=== PATIENT | female | born 1950 | race Caucasian/White ===

== ENCOUNTER 2017-04-20 14:00 | Observation (INO) ==
[2017-04-20] MEDS ORDERED: Aspirin 81 MG TAB.CHEW PO ONE (14:17)
[2017-04-20] MEDS ORDERED: 0.9 % Sodium Chloride 500 ML IVC ONE (14:17)
[2017-04-20 14:51] LABS: Basophils % 0.6 %; Eosinophils % 0.6 %; Hematocrit 45.1 % (35.3-44.9); Hemoglobin 15.1 g/dL (11.5-15.4); Immature Granulocytes % 0.3 % (0-4); Lymphocytes # 2.4 K/mcL (0.6-4.6); Lymphocytes % 36.4 %; Mean Corpuscular HGB Conc 33.5 g/dL (31.6-35.5); Mean Corpuscular Hemoglobin 28.9 pg (28.0-33.3); Mean Corpuscular Volume 86.4 fL (83.0-100.0); Mean Platelet Volume 9.2 fL (9.4-12.4); Monocytes # 0.4 K/mcL (0.0-1.3); Neutrophils # 3.7 K/mcL (1.6-8.9); Platelet Count 254 K/mcL (140-400); Red Blood Count 5.22 M/mcL (3.82-4.97); Red Cell Distribution Width 12.4 % (11.5-14.5); Segmented Neutrophils % 56.1 %
[2017-04-20 15:03] LABS: BUN/Creatinine Ratio 13 (6-26); Blood Urea Nitrogen 11 mg/dL (8-23); Calcium 9.4 mg/dL (8.6-10.3); Carbon Dioxide 25 mEq/L (23-29); Chloride 106 mEq/L (98-107); Glucose 165 mg/dL (70-105); Osmolality,Calculated 293 (280-300); Sodium 140 mEq/L (136-145); eGFR For African Americans > 60 (> 60); eGFR For Non-African Americans > 60 (> 60)
[2017-04-20 15:14] LABS: INR 1.1; Prothrombin Time 11.8 Seconds (9.4-12.1)
--- NOTE | 2017-04-20 16:28 | Emergency Department Note ---
Disposition Clinical Impression: Atrial fibrillation with RVR Disposition: Admitted As Inpatient Condition: Fair Time of Disposition: 16:40 Chest Pain HPI - General Chief Complaint: ED Chest Pain Stated Complaint: Chest Pain Time Seen by Provider: 04/20/17 14:12 Source: patient Limitations: no limitations Vital Signs Reviewed: Yes Nursing Notes Reviewed: Yes - History of Present Illness HPI Narrative: 66-year-old female presents in A. fib RVR. Patient has a history of previous A. fib RVR after left lower lung resection for lung cancer in the past. Patient has never been on anticoagulants. Patient states that at 0530 hrs. this morning she was awoken by chest pain mid substernal without radiation and no diaphoresis. Patient states the pain 5/10 and constant. Patient states it lasted up until 1 hour prior to arrival here to the ED. Patient denies any URI symptoms, shortness of breath, chest pain at this time. Patient states she has had previous episodes of pleural effusion and needed therapeutic tap to relieve the fluid. Severity scale (1-10): 0 - Related Data Home Medications Medication Instructions Recorded Confirmed Calcitriol [Rocaltrol] 0.25 mcg PO QAM 04/24/15 04/20/17 Cholecalciferol (Vitamin D3) 5,000 unit PO QPM 04/24/15 04/20/17 [Vitamin D3] Albuterol Sulfate [Proair Hfa] 2 puff IH Q4H PRN 09/20/16 04/20/17 EPINEPHrine [Epipen] 0.3 mg IM ONCE PRN 09/20/16 04/20/17 hydrOXYzine HCl [Hydroxyzine HCl] 25 mg PO TID PRN 09/20/16 04/20/17 Acetaminophen [Tylenol] 650 mg PO BID 04/20/17 04/20/17 Aspirin Enteric Coated [Aspirin EC] 81 mg PO DAILY 04/20/17 04/20/17 Calcium Carbonate [Calcium] 500 mg PO DAILY 04/20/17 04/20/17 Levothyroxine [Synthroid] 88 mcg PO 0630 04/20/17 04/20/17 Multivitamin [One Daily 1 each PO DAILY 04/20/17 04/20/17 Multivitamin] Allergies Allergy/AdvReac Type Severity Reaction Status Date / Time No Known Allergies Allergy Verified 04/24/15 09:57 All systems ED: reviewed and negative except as stated. Review of Systems: As Per HPI Constitutional: Denies: fever, chills, weakness Eyes: Denies: vision change ENT ED: Denies: congestion Cardiovascular: Reports: chest pain. Denies: palpitations, dyspnea on exertion Respiratory: Denies: cough, dyspnea, wheezes Gastrointestinal: Denies: abdominal pain, nausea, vomiting, diarrhea Genitourinary: Denies: urgency, dysuria, frequency, hematuria Chest Pain PMH - Past Medical History Medical history: Reports: cancer, fibromyalgia, hyperlipidemia, thyroid disease Surgical history: Reports: cancer surgery, cholecystectomy, thyroidectomy, other Psychiatric history: Reports: ADHD ANIME ARTIST history: Reports: bilateral tubal ligation - Social History Smoking Status: Current every day smoker Alcohol use: Reports: none Drug use: Reports: none Physical Exam Vital Signs Temperature 97.9 F 04/20/17 14:02 Pulse Rate 100 04/20/17 14:02 Respiratory Rate 18 04/20/17 14:02 Blood Pressure 103/68 04/20/17 14:02 O2 Sat by Pulse Oximetry 95 04/20/17 14:02 Temperature 97.9 F 04/20/17 14:02 Pulse Rate 110 04/20/17 15:56 Respiratory Rate 21 04/20/17 15:56 Blood Pressure 114/62 04/20/17 15:56 O2 Sat by Pulse Oximetry 97 04/20/17 15:56 Oxygen Delivery Oxygen Delivery Room Air 66-year-old female who is alert and oriented 3 and in no acute distress. Patient is nontoxic appearing. Patient has no conversational dyspnea. Patient' s vitals show tachycardia with EKG confirming A. fib RVR. Patient is normotensive and afebrile. O2 sat 95% on room air - General Limitations: no limitations General appearance: alert, in no apparent distress - Head Head exam: atraumatic, normocephalic, normal inspection - Eye Eye exam: Present: normal appearance, PERRL, EOMI - ENT ENT exam: normal exam, normal oropharynx, mucous membranes moist - Neck Neck exam: Present: normal inspection, full ROM, trachea midline - Chest Chest inspection: Present: normal inspection, symmetric chest wall rise - Respiratory Respiratory exam: Present: normal lung sounds bilaterally. Absent: respiratory distress, wheezes - Cardiovascular Cardiovascular exam: Present: tachycardia, irregular rhythm - Abdominal Exam Abdominal exam: Present: soft, Non-Tender. Absent: tenderness, distention, guarding, rebound, rigidity - Back Exam Back exam: Present: normal inspection, full ROM. Absent: tenderness, CVA tenderness (R), CVA tenderness (L) - Neurological Exam Neurological exam: Present: alert, oriented X3 - Psychiatric Psychiatric exam: Present: normal affect, normal mood - Skin Skin exam: Present: warm, dry, intact, normal color Course Vital Signs Temperature 97.9 F 04/20/17 14:02 Pulse Rate 100 04/20/17 14:02 Respiratory Rate 18 04/20/17 14:02 Blood Pressure 103/68 04/20/17 14:02 O2 Sat by Pulse Oximetry 95 04/20/17 14:02 Temperature 98.1 F 04/20/17 18:36 Pulse Rate 96 04/20/17 18:36 Respiratory Rate 14 04/20/17 18:36 Blood Pressure 115/74 04/20/17 18:36 O2 Sat by Pulse Oximetry 99 04/20/17 18:36 Oxygen Delivery Oxygen Delivery Room Air Chest Pain - MDM Narrative Medical decision making narrative: Patient chest pain and A. fib RVR history of previous lung cancer concerning for possible pericardial effusion bedside ultrasound showed no pericardial effusion. There is no D sign or right ventricular dilatation. Patient has good wall motion. Evaluation of hydration status jutted patient's IVC did not compress greater than 50%. Patient received 500 mL bolus of IV fluids and patient's rate come down to 90s to 110. Consider ACS/MN. Patient is nonischemic EKG with no elevation of troponins. Patient is currently not any chest pain. Patient's chest pain and it before arrival. Currently recommend continuation of therapy and patient to identify reasons for patient's A. fib RVR. Chest x-ray shows stable left pleural effusion. HEARTSCORE 5 Pt currently rate controlled with heart rate under 100bpm with intermittent excursions when pt is excited. still in A-fib but still has no chest pain. Patient accepts decision for admission. Patient is accepted for admission Dr. Chaudhry the Hospitalist has accepted patient for admission at 1232 hrs. - Lab Data Lab results reviewed: Yes I reviewed the patient's lab results. Lab results narrative: Short CBC 04/20/17 Range/Units 14:38 WBC 6.6 (4.3-11.1) K/mcL Hgb 15.1 (11.5-15.4) g/dL Hct 45.1 H (35.3-44.9) % Plt Count 254 (140-400) K/mcL Neutrophils # 3.7 (1.6-8.9) K/mcL BMP 04/20/17 Range/Units 14:38 Sodium 140 (136-145) mEq/L Potassium 4.0 (3.5-5.1) mEq/L Chloride 106 (98-107) mEq/L Carbon Dioxide 25 (23-29) mEq/L BUN 11 (8-23) mg/dL Creatinine 0.82 (0.60-1.20) mg/dL Glucose 165 H (70-105) mg/dL Calcium 9.4 (8.6-10.3) mg/dL Cardiac Enzymes 04/20/17 Range/Units 14:38 Troponin I < 0.03 (< 0.04) ng/mL Result diagrams: 04/20/17 14:38 04/20/17 14:38 Lab Results 04/20/17 04/20/17 04/20/17 Range/Units 14:38 14:38 14:38 WBC 6.6 (4.3-11.1) K/mcL RBC 5.22 H (3.82-4.97) M/mcL Hgb 15.1 (11.5-15.4) g/dL Hct 45.1 H (35.3-44.9) % MCV 86.4 (83.0-100.0) fL MCH 28.9 (28.0-33.3) pg MCHC 33.5 (31.6-35.5) g/dL RDW 12.4 (11.5-14.5) % Plt Count 254 (140-400) K/mcL MPV 9.2 L (9.4-12.4) fL Immature Gran % 0.3 (0-4) % Seg Neutrophils % 56.1 % Lymphocytes % 36.4 % Monocytes % 6.0 % Eosinophils % 0.6 % Basophils % 0.6 % Neutrophils # 3.7 (1.6-8.9) K/mcL Lymphocytes # 2.4 (0.6-4.6) K/mcL Monocytes # 0.4 (0.0-1.3) K/mcL Eosinophils # 0.0 (0.0-0.6) K/mcL Basophils # 0.0 (0.0-0.2) K/mcL PT 11.8 (9.4-12.1) Seconds INR 1.1 Sodium 140 (136-145) mEq/L Potassium 4.0 (3.5-5.1) mEq/L Chloride 106 (98-107) mEq/L Carbon Dioxide 25 (23-29) mEq/L BUN 11 (8-23) mg/dL Creatinine 0.82 (0.60-1.20) mg/dL Est GFR ( Amer) > 60 (> 60) Est GFR (Non-Af Amer) > 60 (> 60) BUN/Creatinine Ratio 13 (6-26) Glucose 165 H (70-105) mg/dL Calculated Osmolality 293 (280-300) Calcium 9.4 (8.6-10.3) mg/dL Troponin I (< 0.04) ng/mL 04/20/17 Range/Units 14:38 WBC (4.3-11.1) K/mcL RBC (3.82-4.97) M/mcL Hgb (11.5-15.4) g/dL Hct (35.3-44.9) % MCV (83.0-100.0) fL MCH (28.0-33.3) pg MCHC (31.6-35.5) g/dL RDW (11.5-14.5) % Plt Count (140-400) K/mcL MPV (9.4-12.4) fL Immature Gran % (0-4) % Seg Neutrophils % % Lymphocytes % % Monocytes % % Eosinophils % % Basophils % % Neutrophils # (1.6-8.9) K/mcL Lymphocytes # (0.6-4.6) K/mcL Monocytes # (0.0-1.3) K/mcL Eosinophils # (0.0-0.6) K/mcL Basophils # (0.0-0.2) K/mcL PT (9.4-12.1) Seconds INR Sodium (136-145) mEq/L Potassium (3.5-5.1) mEq/L Chloride (98-107) mEq/L Carbon Dioxide (23-29) mEq/L BUN (8-23) mg/dL Creatinine (0.60-1.20) mg/dL Est GFR ( Amer) (> 60) Est GFR (Non-Af Amer) (> 60) BUN/Creatinine Ratio (6-26) Glucose (70-105) mg/dL Calculated Osmolality (280-300) Calcium (8.6-10.3) mg/dL Troponin I < 0.03 (< 0.04) ng/mL - Radiology Data Radiology results reviewed: Yes I reviewed the patient's radiology results. Chest X-Ray 04/20/17 14:20 IMPRESSION: COPD with stable left effusion and basilar atelectasis. D/ / 04/20/2017 15:25:00 Toñito Crandall MD / Mariela Henson Interpreting Provider: Toñito Crandall MD - EKG Data EKG attestation: Yes I reviewed and interpreted this EKG. EKG results narrative: EKG taken today shows A. fib RVR were no ST elevations or depressions use, no cures widened QT prolongation. Heart Score - Score History: Moderately Suspicious EKG: Non Specific repolarisation Disturbance Age: Greater than 65 Risk Factors: 1-2 risk factors Troponin: Less than normal limit HEART Score Total: 5
[2017-04-20] MEDS ORDERED: 0.9 % Sodium Chloride 1,000 ML IVC ONE (16:38)
--- NOTE | 2017-04-20 17:38 | Emergency Department Note ---
START Narrative - START START: I examined this patient and my medical decision-making was reviewed with the Resident Physician. I agree with the documented findings, disposition and treatment plan as described except to the extent set forth below. I was present and assisting during Dr. Lay's ultrasound. Normal left to right bowing of septum, RV normal size, negative McConnel sign. IVC assessment c /w euvolemia - 1.9 cm, compresses to 1.15 cm with sniffing. Second episode of A- fib, not on Coumadin.
[2017-04-20] MEDS ORDERED: Naloxone 0.4 MG/ML INJ IVP PRN (18:33)
[2017-04-20] MEDS: 0.9 % Sodium Chloride 1,000 ML IVC SCH (19:21)
--- NOTE | 2017-04-20 20:35 | Internal Med History&Physical ---
Date of Encounter: 04/20/17 Time of Encounter: 18:30 Assessment and Plan (1) Atrial fibrillation with RVR Current visit: Yes Status: Acute 1 patient presented with atrial fib RVR rate of 1:30 and chest pain. She does have a history of paroxysmal atrial fibrillation she was previously prescribed amiodarone however she stopped taking that after about 3 months. She was on daily 81 mg aspirin. Presently she is rate controlled in the 90s blood pressure is stable. Metoprolol 5 mg IV as needed for rate control We will initiate on Lovenox 1 mg/ kg I did consult cardiology and spoke with Dr. Pruitt who will see patient tomorrow Continuous cardiac monitoring We will check a TSH (2) Chest pain Current visit: Yes Status: Acute Patient was awakened with midsternal chest pressure she does have a history of hypertension hyperlipidemia and is a smoker. She did present in A. fib RVR which is most likely contributing to chest pain. First troponin was 0 we will continue to trend Continuous cardiac monitoring We will place on Lovenox subcutaneous, rate is controlled at this time I did speak with Dr. Pruitt who would see patient up on consult Nitroglycerin as needed for chest pain Continue with aspirin statin will add a beta jayne Qualifiers: Chest pain type: other chest pain Qualified Code(s): R07.89 - Other chest pain; R07.8 - Other chest pain (3) HTN (hypertension) Current visit: No Status: Chronic Presently controlled Qualifiers: Hypertension type: essential hypertension Qualified Code(s): I10 - Essential (primary) hypertension (4) History of thyroid cancer Current visit: Yes Status: Acute Patient had thyroid cancer in 2011 status post total thyroidectomy and iodine therapy. Continue with levothyroxin We will check TSH (5) DVT prophylaxis Current visit: Yes Status: [facility] Internal Medicine - H&P: HPI Chief complaint: CP Admitted From: Emergency Dept Plans for Post Hospital Care: Home History of present illness: Ms. Carrera is a 66 year old female past medical history of lung cancer with lobectomy of LLL thyroid cancer Hodgkin's lymphoma hyperlipidemia. According to the patient she was awakened at approximately 5:30 this morning experiencing midsternal nonradiating chest pressure with some diaphoresis. She described the pain as 5 out of 10 and it was constant. She states that with ease on its own however it was aggravated with exertion and she would feel lightheaded with exertion. The pressure would continue throughout the morning intermittently. She denies any nausea or abdominal pain palpitations fevers or chills. She presented to the ER with the above complaints upon arrival EKG did reveal atrial fibrillation rapid ventricular response with a rate of 130s. Patient does have a history of atrial fibrillation. She states that in 2014 she underwent lobectomy postoperatively she developed atrial fibrillation and was placed on amiodarone. She said after 3 months she stopped taking the amiodarone and has not had any other episodes of atrial fibrillation until today. Lab work was obtained which was unremarkable chest x-ray did show COPD with stable left effusion and basilar atelectasis. She was given IV fluid which did decrease her rate down to 90s-100s. She was admitted for further workup and evaluation. Presently patient denies any chest pain or distress of breath she does not appear to be in any respiratory distress and she is hemodynamically stable at this time. Past Med Surg Social Fam HX - Past Medical History Medical history: cancer, fibromyalgia, hyperlipidemia, thyroid disease Psychiatric history: ADHD - Past Surgical History Surgical History: cancer surgery, cholecystectomy, thyroidectomy, other - Social History Smoking Status: Current every day smoker Packs per day: 1 Smokeless Tobacco Status: No Alcohol use: none Drug use: none - Family History Mother Living Status: Hx Family Cardiac Disorders: Yes Hx Family Endocrine Disorder: Yes Internal Medicine - H&P: Meds Calcitriol [Rocaltrol] 0.25 mcg PO QAM 04/24/15 [History] Cholecalciferol (Vitamin D3) [Vitamin D3] 5,000 unit PO QPM 04/24/15 [History] Albuterol Sulfate [Proair Hfa] 2 puff IH Q4H PRN 09/20/16 [History] EPINEPHrine [Epipen] 0.3 mg IM ONCE PRN 09/20/16 [History] hydrOXYzine HCl [Hydroxyzine HCl] 25 mg PO TID PRN 09/20/16 [History] Acetaminophen [Tylenol] 650 mg PO BID 04/20/17 [History] Aspirin Enteric Coated [Aspirin EC] 81 mg PO DAILY 04/20/17 [History] Calcium Carbonate [Calcium] 500 mg PO DAILY 04/20/17 [History] Levothyroxine [Synthroid] 88 mcg PO 0630 04/20/17 [History] Multivitamin [One Daily Multivitamin] 1 each PO DAILY 04/20/17 [History] 3 Allergy/AdvReac Type Severity Reaction Status Date / Time No Known Allergies Allergy Verified 04/24/15 09:57 All Systems PM: A 10-system review of systems was performed and is negative for pertinent findings except as documented above in the HPI. - Constitutional Constitutional: no chills, no fever(s), no night sweats - EENT Eyes: no change in vision, no discharge, no pain, no photophobia Ears: no ear discharge, no ear pain, no tinnitus Nose, mouth and throat: no dysphagia, no nasal discharge, no neck pain, no sore throat - Cardiovascular Cardiovascular ROS IM: chest pain, diaphoresis, lightheadedness, no dyspnea, no palpitations, no syncope - Respiratory Respiratory: no cough, no dyspnea, no wheezing, no excessive phlegm production - Gastrointestinal Gastrointestinal: no abdominal pain, no diarrhea, no hematemesis, no hematochezia, no melena, no nausea, no vomiting - Genitourinary Genitourinary: no change in urinary stream, no dysuria, no flank pain, no hematuria - Musculoskeletal Musculoskeletal ROS IM: no numbness, no tingling - Integumentary Integumentary IM: no rash, no unusual bruising - Neurological Neurological ROS: no confusion, no convulsions, no focal weakness, no numbness, no tingling, no tremor(s) - Hematologic/Lymphatic Hematologic/Lymphatic: no easy bruising - Constitutional Vitals: Temp Pulse Resp BP Pulse Ox 98.1 F 96 14 115/74 99 04/20/17 18:36 04/20/17 18:36 04/20/17 18:36 04/20/17 18:36 04/20/17 18:36 General appearance: Present: A&O X 3 - Head Head exam: Present: atraumatic, normocephalic - Eye Eye exam: Present: PERRL, conjuntiva pink, sclera anicteric Pupils: Present: PERRL - Neck Neck exam general surgery: Present: supple, trachea midline. Absent: lymphadenopathy - Respiratory Respiratory exam: Present: CTAB. Absent: accessory muscle use, rales, rhonchi, wheezes - Cardiovascular Cardiovascular exam: Present: irregular rhythm, +S1, +S2. Absent: diastolic murmur, gallop, rubs, systolic murmur - GI/Abdominal GI/Abdominal exam: Present: normal bowel sounds, soft, no peritoneal signs. Absent: distended, tenderness - Extremities Exam Extremities exam: Present: warm, radial pulses palpable and symmetrical. Absent : calf tenderness, cyanotic, pedal edema - Neurological Exam Neurological exam: Present: CN II-XII intact, oriented X3, no focal deficits. Absent: pronater drift, facial droop, speech deficit - Skin Skin exam: Present: dry, intact Internal Med - H&P Results - Labs CBC & Chem 7: 04/20/17 14:38 04/20/17 14:38 Labs: Cardiac Enzymes 04/20/17 Range/Units 19:27 Troponin I < 0.03 (< 0.04) ng/mL - EKG Data Prior EKG available for review: no EKG comments: 04/20/17 20:39 Atrial fibrillation with RVR no ST-T wave abnormalities noted 04/20/17 20:39 - Diagnostic Studies Other Images Additional comments: Chest X-Ray 04/20/17 14:20 IMPRESSION: COPD with stable left effusion and basilar atelectasis. D/ / 04/20/2017 15:25:00 Toñito Crandall MD / Mariela Henson Interpreting Provider: Toñito Crandall MD
[2017-04-20] MEDS: Acetaminophen 325 MG TABLET PO SCH (20:51)
[2017-04-20] MEDS: *HR* Enoxaparin 80 MG/0.8 ML SYRINGE SQ SCH (20:51)
[2017-04-20] MEDS ORDERED: *HR* Metoprolol 5 MG/5 ML VIAL IVP PRN (22:37)
[2017-04-21 01:05] LABS: Basophils % 0.6 %; Eosinophils # 0.1 K/mcL (0.0-0.6); Eosinophils % 0.9 %; Immature Granulocytes % 0.3 % (0-4); Lymphocytes # 2.9 K/mcL (0.6-4.6); Lymphocytes % 43.9 %; Mean Corpuscular HGB Conc 33.2 g/dL (31.6-35.5); Mean Corpuscular Hemoglobin 29.2 pg (28.0-33.3); Mean Corpuscular Volume 88.2 fL (83.0-100.0); Mean Platelet Volume 9.8 fL (9.4-12.4); Monocytes # 0.5 K/mcL (0.0-1.3); Neutrophils # 3.1 K/mcL (1.6-8.9); Platelet Count 190 K/mcL (140-400); Red Blood Count 4.31 M/mcL (3.82-4.97); Red Cell Distribution Width 12.5 % (11.5-14.5); Segmented Neutrophils % 47.3 %
[2017-04-21 01:49] LABS: Hemoglobin 12.6 g/dL (11.5-15.4)
[2017-04-21 02:11] LABS: Chol/HDL Ratio 4.9 (0-4.9)
[2017-04-21 02:12] LABS: BUN/Creatinine Ratio 19 (6-26); Blood Urea Nitrogen 13 mg/dL (8-23); Calcium 8.4 mg/dL (8.6-10.3); Carbon Dioxide 25 mEq/L (23-29); Chloride 114 mEq/L (98-107); Glucose 128 mg/dL (70-105); Osmolality,Calculated 304 (280-300); Potassium 4.1 mEq/L (3.5-5.1); Sodium 146 mEq/L (136-145); eGFR For African Americans > 60 (> 60); eGFR For Non-African Americans > 60 (> 60)
[2017-04-21] MEDS: *HR* Enoxaparin 80 MG/0.8 ML SYRINGE SQ SCH (05:36)
--- NOTE | 2017-04-21 08:06 | Electrocardiograph Report ---
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
[2017-04-21] MEDS: Acetaminophen 325 MG TABLET PO SCH (08:25)
[2017-04-21] MEDS ORDERED: Multivit/Ca/Min/Fe/FA 1 TAB TABLET PO SCH (09:00)
[2017-04-21] MEDS ORDERED: Aspirin 81 MG TAB.CHEW PO SCH (09:00)
--- NOTE | 2017-04-21 12:07 | Cardiology Consult Note ---
Date of Encounter: 04/21/17 Time of Encounter: 10:30 Assessment and Plan (1) Atrial flutter with rapid ventricular response Current Visit: Yes Status: Acute Per cardiology: -ADmitted with a.flutter RVR. -Had PAF after lung resection (2014) and was placed on amio for about 3 months. -Converted to SR at 2322 last night. -AVerage HR previous 12 hours noted to be 74. -TTE 01/2017 with LVEF 60%, no significant valvular dysfunction, no segmental wall motion abnormalities. 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 Recommend anticoagulation. Patient agreeable. -Will start low dose beta jayne. -Will start xarelto for anticoagulation. Of note, patient reports her and her have the same insurnace and her takes xarelto and it costs them $15/month. (2) Chest pressure Current Visit: Yes Status: Acute Per cardiology: -Reported chest pressure, shortness of breath, and weakness when in atrial fibrillation with RVR. -Denies symptoms now. -Troponins negative x4. -ECG with atrial flutter with RVR. -ON asa, statin, beta jayne added. -Will repeat ECG since patient is now SR. -Can consider outpateint stress test. Discussion w patient/family: The assessment and plan as outlined above was discussed with the patient who expressed understanding and agreement. All questions were answered. Thank you for involving us in the care of your patient. Please call with any questions. Discussed and reviewed with . History of Present Illness Consult date: 04/20/17 Requesting physician: Cayla Barnett Consult reason: a.flutter RVR Chief complaint: chest pressure, shortness of breath, weakness History of present illness: Ms. Carrera is a 66 year old female with a relevant past medical history of PAF post op, hyperlipidemia, anxiety, depression, fibromyalgia, lung cancer, thyroid cancer, hodgkins lymphoma, PVD. Patient presented to [facility] with complaints of chest pressure and shortness fo breath. Patient states when she woke up she noticed these symptoms. Patient states symptoms occured at rest. Patient reports associated palpitations, fluttering, dizziness, and weakness. Patient denies any current symptoms. Past Med Surg Social Fam HX - Past Medical History Attestation: Yes The following information was validated with the patient. Source: patient, old records reviewed Medical history: cancer, fibromyalgia, hyperlipidemia, thyroid disease Psychiatric history: ADHD - Past Surgical History Surgical History: cancer surgery, cholecystectomy, thyroidectomy, other - Social History Smoking Status: Current every day smoker Packs per day: 1 Smokeless Tobacco Status: No Alcohol use: none Drug use: none - Family History Mother Living Status: Hx Family Cardiac Disorders: Yes Hx Family Endocrine Disorder: Yes Medications and Allergies Calcitriol [Rocaltrol] 0.25 mcg PO QAM 04/24/15 [History] Cholecalciferol (Vitamin D3) [Vitamin D3] 5,000 unit PO QPM 04/24/15 [History] Albuterol Sulfate [Proair Hfa] 2 puff IH Q4H PRN 09/20/16 [History] EPINEPHrine [Epipen] 0.3 mg IM ONCE PRN 09/20/16 [History] hydrOXYzine HCl [Hydroxyzine HCl] 25 mg PO TID PRN 09/20/16 [History] Acetaminophen [Tylenol] 650 mg PO BID 04/20/17 [History] Aspirin Enteric Coated [Aspirin EC] 81 mg PO DAILY 04/20/17 [History] Calcium Carbonate [Calcium] 500 mg PO DAILY 04/20/17 [History] Levothyroxine [Synthroid] 88 mcg PO 0630 04/20/17 [History] Multivitamin [One Daily Multivitamin] 1 each PO DAILY 04/20/17 [History] 3 Allergy/AdvReac Type Severity Reaction Status Date / Time No Known Allergies Allergy Verified 04/24/15 09:57 All Systems Review: A 10-system review of systems was performed and is negative for pertinent findings except as documented above in the HPI. - Constitutional Constitutional: weakness - Cardiovascular Cardiovascular: as per HPI, chest pain at rest, dyspnea on exertion, irregular heart rhythm, lightheadedness, palpitations, rapid heart rate Physical Examination Vital Signs, Last 4 Hours Temp Pulse Resp BP Pulse Ox 04/21/17 10:56 98 F 74 19 145/73 97 04/21/17 10:22 97 General: Conversant, No Apparent Distress HEENT: Atraumatic, Normocephaly, Mucus Membranes Moist Neck: No JVD, Normal carotid pulses Cardiac: Reg Rate and Rhythm, Normal S1 and S2, No Murmur Lungs: Normal Breath Sounds, No Wheeze, Rales, Rhonchi Neuro: Alert and responsive, No focal deficits noted Abdomen: Soft, Non-Tender Skin: No rashes noted on visualized skin Musculoskeletal: No Chest Wall Tenderness Extremities: No Clubbing, No Cyanosis, No Edema, Normal Pulses Results 04/21/17 00:22 04/21/17 00:22 Lab Results Impressions Chest X-Ray 04/20/17 14:20 IMPRESSION: COPD with stable left effusion and basilar atelectasis. D/ / 04/20/2017 15:25:00 Toñito Crandall MD / Mariela Henson Interpreting Provider: Toñito Crandall MD Active Medications Acetaminophen (Tylenol) 650 mg PO BID [facility] Stop: 10/20/17 21:01 Last Admin: 04/21/17 08:25 Dose: 650 mg Aspirin (Aspirin) 81 mg PO DAILY [facility] Stop: 10/21/17 09:01 Last Admin: 04/21/17 08:25 Dose: 81 mg Atorvastatin Calcium (Lipitor) 40 mg PO HS [facility] Stop: 10/20/17 21:01 Last Admin: 04/20/17 21:05 Dose: 40 mg Calcitriol (Rocaltrol) 0.25 mcg PO QAM [place] Stop: 10/21/17 09:01 Last Admin: 04/21/17 08:25 Dose: 0.25 mcg Calcium Carbonate (Tums) 500 mg PO DAILY [place] Stop: 10/21/17 09:01 Last Admin: 04/21/17 08:29 Dose: 500 mg Sodium Chloride (0.9 % Sodium Chloride) 1,000 mls @ 50 mls/hr IVC .Q20H [place] Stop: 04/22/17 10:44 Last Admin: 04/20/17 19:21 Dose: 50 mls/hr Levothyroxine Sodium (Synthroid) 88 mcg PO 0630 [place] Stop: 10/21/17 06:31 Last Admin: 04/21/17 05:36 Dose: 88 mcg Metoprolol Tartrate (Lopressor) 5 mg IVP Q6HR PRN PRN Reason: SEE COMMENTS Stop: 10/20/17 22:38 Metoprolol Tartrate (Lopressor) 25 mg PO BID [facility] Stop: 10/21/17 12:16 Multivitamins/Calcium (Thera M Plus) 1 tab PO DAILY [place] Stop: 10/21/17 09:01 Last Admin: 04/21/17 08:25 Dose: 1 tab Naloxone HCl (Narcan) 0.4 mg IVP Q2MIN PRN PRN Reason: Opioid Reversal Stop: 10/20/17 18:34 Rivaroxaban (Xarelto) 20 mg PO 1700 [place] Stop: 10/21/17 17:01 Vitamin D (Vitamin D) 1,000 unit PO QPM [facility] Stop: 10/21/17 18:01 Laboratory Tests 04/25/15 01/17/17 02/22/17 06:45 12:07 15:28 Hgb 13.1 14.0 Potassium Creatinine Magnesium Troponin I TSH 1.447 04/20/17 04/20/17 04/20/17 14:38 14:38 19:27 Hgb 15.1 Potassium Creatinine Magnesium Troponin I < 0.03 < 0.03 TSH 04/21/17 04/21/17 04/21/17 00:22 00:22 00:22 Hgb 12.6 D Potassium 4.1 Creatinine 0.68 Magnesium 2.0 Troponin I < 0.03 TSH 04/21/17 06:13 Hgb Potassium Creatinine Magnesium Troponin I < 0.03 TSH - Imaging and Cardiology Chest Xray: report reviewed Echo: report reviewed - EKG Interpretation EKG results cardiology: personally reviewed (ECG with atrial flutter with RVR, HR 137.), other (Telemetry reviewed with average HR previous 12 hours noted to be 74. Patient was atrial fibrillation, however converted to sinus rhythm around 2322 last night. PVCs noted.) Consult Discharge Plan - Plan Referrals: Katt Gunn, [employer] CONTROLS OPERATOR [Primary Care Provider] - 04/29/17 9:45 am
[2017-04-21] MEDS: 0.9 % Sodium Chloride 1,000 ML IVC SCH (15:32)
--- NOTE | 2017-04-21 16:05 | Discharge Summary ---
Date of Encounter: 04/21/17 Time of Encounter: 16:01 - Discharge Diagnosis (1) Atrial fibrillation with RVR Priority: Primary Status: Resolved (2) Chest pain Priority: Secondary Status: Resolved Qualifiers: Chest pain type: other chest pain Qualified Code(s): R07.89 - Other chest pain; R07.8 - Other chest pain (3) DVT prophylaxis Priority: Secondary Status: Acute (4) History of thyroid cancer Priority: Secondary Status: Chronic (5) HTN (hypertension) Priority: Secondary Status: Chronic Qualifiers: Hypertension type: essential hypertension Qualified Code(s): I10 - Essential (primary) hypertension - Discharge Medications Prescriptions: Metoprolol [Lopressor] 25 mg PO BID #60 tablet Rivaroxaban [Xarelto] 20 mg PO 1700 #30 tablet Home Medications: Calcitriol [Rocaltrol] 0.25 mcg PO QAM 04/24/15 [History] Cholecalciferol (Vitamin D3) [Vitamin D3] 5,000 unit PO QPM 04/24/15 [History] Albuterol Sulfate [Proair Hfa] 2 puff IH Q4H PRN 09/20/16 [History] EPINEPHrine [Epipen] 0.3 mg IM ONCE PRN 09/20/16 [History] hydrOXYzine HCl [Hydroxyzine HCl] 25 mg PO TID PRN 09/20/16 [History] Acetaminophen [Tylenol] 650 mg PO BID 04/20/17 [History] Aspirin Enteric Coated [Aspirin EC] 81 mg PO DAILY 04/20/17 [History] Calcium Carbonate [Calcium] 500 mg PO DAILY 04/20/17 [History] Levothyroxine [Synthroid] 88 mcg PO 0630 04/20/17 [History] Multivitamin [One Daily Multivitamin] 1 each PO DAILY 04/20/17 [History] Metoprolol [Lopressor] 25 mg PO BID #60 tablet 04/21/17 [Rx] Rivaroxaban [Xarelto] 20 mg PO 1700 #30 tablet 04/21/17 [Rx] Allergies/Adverse Reactions: 3 Allergy/AdvReac Type Severity Reaction Status Date / Time No Known Allergies Allergy Verified 04/24/15 09:57 Procedures/tests Complete & Pending: Procedures Performed prior 72 hours Category Date Time Status ECG 12 lead ECG [ECG] Routine Y 04/21/17 11:35 Ordered Date of admission: 04/20/17 16:35 Primary care physician: Katt Gunn CNP Consults: 04/20/17 20:18 Consult to Cardiology [CONS] Routine Comment: Consulting Provider: Segundo Franz Reason for Consult: CP-afib RVR Time Notified: 20:19 Call Completed: Yes Discharging clinician: Cely Ortiz Anticipated date of discharge: 04/21/17 - Patient Status Disposition: Home, Self-Care Condition: Good Functional capacity at discharge: independent ambulation Overall status at discharge: patient is back to baseline - Discharge Instructions Follow Up With: Katt Gunn CNP [Primary Care Provider] - 04/29/17 9:45 am Additional Instructions: Please follow up with your primary care physician within five days after your discharge from the hospital. Please follow up with cardiology within one week after your discharge from the hospital. Outpatient stress test is recommended by cardiology. Metoprolol 25mg twice a day has been added to your home medications. xarelto 20mg once a day has been added to your home medications. Your risk of bleeding is increased with Xarelto, please seek medical help immediately if you sustain a fall or have uncontrolled bleeding. Resume all other home medications as prescribed by your primary care physician. - Diet and Activity Activity: resume usual activities as tolerated Diet: low fat, low cholesterol, low salt diet Hospital course: Ms. Carrera is a 66 year old female with PMH of lung ca, thyroid ca, hodgkin' s lymphoma, HLD who was admitted for chest pain and Afib. She has history of post procedural in 2014 after a lung resection was done for lung ca and was treated with amiodarone at the time. amiodarone was discontinued 3 months post- op. She received BB in the ER, which converted her to NSR. Her serial TNI have been negative and she has been started on PO BB. She was evaluated by cardiology and Xarelto was added for anticoagulation. Her chest pain resolved with rate control. Cardiology has signed off and outpatient stress test is recommended. AT this time she is hemodynamically stable and cleared for discharge by cardiology. She will be discharged to home with BB and Xarelto. Pt demonstrates understanding of her diagnosis and agrees with the discharge care and plan. - Time Spent with Patient Total time spent providing and/or coordinating discharge services: Less than 30 minutes - Constitutional Vitals: Temp Pulse Resp BP Pulse Ox 98.6 F 68 18 156/84 96 04/21/17 15:08 04/21/17 15:08 04/21/17 15:08 04/21/17 15:08 04/21/17 15:08 General appearance: Present: A&O X 3, no acute distress - Head Head exam: Present: atraumatic, normocephalic - Eye Eye exam: Present: conjuntiva pink, sclera anicteric - Respiratory Respiratory exam: Present: CTAB. Absent: accessory muscle use, rales, rhonchi, wheezes - Cardiovascular Cardiovascular exam: Present: RRR, +S1, +S2. Absent: diastolic murmur, gallop, rubs, systolic murmur - GI/Abdominal GI/Abdominal exam: Present: normal bowel sounds, soft, no peritoneal signs. Absent: distended, tenderness - Extremities Exam Extremities exam: Present: warm, radial pulses palpable and symmetrical. Absent : calf tenderness, cyanotic, pedal edema - Neurological Exam Neurological exam: Present: alert, oriented X3 - Psychiatric Psychiatric exam: Present: normal affect, normal mood
[2017-04-21] MEDS ORDERED: *HR* Rivaroxaban 10 MG TABLET PO SCH (17:00)
[2017-04-21] MEDS ORDERED: Cholecalciferol (D-3) 1,000 UNIT TABLET PO SCH (18:00)
[2017-04-21 18:38] VITALS: BP 149/75
--- NOTE | 2017-04-22 18:15 | Electrocardiograph Report ---
[place] [id number] Test Date: 2017-04-21 Pat Name: Leela Carrera Department: 113 Room: 3B45 Gender: F Volcanology Professor: : 1950 Requested By: Evelyn Lamb Order Number: [id number] Reading MD: Chadwick Pruitt Measurements Intervals [place] Rate: 69 P: 65 HI: 162 QRS: 35 QRSD: 110 T: -4 QT: 399 QTc: 418 Interpretive Statements SINUS RHYTHM INCOMPLETE RIGHT BUNDLE BRANCH BLOCK NONSPECIFIC T-WAVE ABNORMALITY Electronically Signed On 04-22-2017 18:14:36 EST by Chadwick Pruitt
== END 2017-04-21 18:52 | disposition home or self-care (01) ==
LOC: 3BNU 14:00 → EMEROO 14:00 → SUATTDRO 16:35 → 3BNU 17:14
PROVIDERS: ADMIT Internal Medicine; ATTEND Internal Medicine

== ENCOUNTER 2017-06-09 06:18 | Inpatient (IN) ==
[2017-06-09] MEDS ORDERED: Vancomycin 1,000 MG in D5% in Water 250 ML IVPB ONE ×2 (06:48→19:00)
[2017-06-09] MEDS ORDERED: CeFAZolin Syr 2,000MG/20 ML 2,000 MG/20 ML SYRINGE IVPB ONE (06:48)
[2017-06-09] MEDS ORDERED: Lidocaine -MPF 1% 2 ML VIAL ID ONE (06:48)
--- NOTE | 2017-06-09 06:55 | Anesthesia Evaluation PreOp ---
Date of Encounter: 06/09/17 Time of Encounter: 06:52 - Past History Planned Operation: fem-fem BPG Cardiac History: HTN, Hyperlipidemia, Arrhythmia (chronic a-fib), Other (PAD) Pulmonary History: Smoker, Asthma, Other (lung cancer) PROCESS COORDINATOR History: Denies Any Significant HX Other Medical History: Thyroid (thyroid cancer), Other (hodgkins lymphoma) Anesthesia History: No Prior Anesthetic Complications, Past Anesthesia (tubal, tonsils, fermin, left lower lobectomy, thyroidectomy) Alcohol Use: none Drug use: none Medications and Allergies Calcitriol [Rocaltrol] 0.25 mcg PO QAM 04/24/15 [History] Cholecalciferol (Vitamin D3) [Vitamin D3] 5,000 unit PO QPM 04/24/15 [History] Albuterol Sulfate [Proair Hfa] 2 puff IH Q4H PRN 09/20/16 [History] EPINEPHrine [Epipen] 0.3 mg IM ONCE PRN 09/20/16 [History] hydrOXYzine HCl [Hydroxyzine HCl] 25 mg PO TID PRN 09/20/16 [History] Aspirin Enteric Coated [Aspirin EC] 81 mg PO DAILY 04/20/17 [History] Calcium Carbonate [Calcium] 500 mg PO DAILY 04/20/17 [History] Levothyroxine [Synthroid] 88 mcg PO 0630 04/20/17 [History] Multivitamin [One Daily Multivitamin] 1 each PO DAILY 04/20/17 [History] Metoprolol [Lopressor] 25 mg PO BID #60 tablet 04/21/17 [Rx] Acetaminophen [Tylenol] 1,000 mg PO Q6HR PRN #90 05/18/17 [Rx] Clopidogrel [Plavix] 75 mg PO DAILY #30 tablet 05/18/17 [Rx] Rivaroxaban [Xarelto] 20 mg PO 1700 #30 tab 05/18/17 [Rx] 3 Allergy/AdvReac Type Severity Reaction Status Date / Time No Known Allergies Allergy Verified 04/24/15 09:57 - Meds/Allergy Pre-op Review Medications Reviewed: Yes (took Plavix yesterday, quit Xarelto Tuesday) Allergies Reviewed: Yes Beta Blockers on Current Med List: Yes If Beta Blockers taken, Date/Time (Last Dose taken): 06/08 at 2300hrs Anesthesia Results - Labs Laboratory Tests 05/12/17 05/12/17 09:04 09:04 Hgb 13.4 Hct 40.6 Plt Count 150 Sodium 140 Potassium 4.0 BUN 22 Creatinine 1.19 - Imaging EKG: report reviewed (SINUS BRADYCARDIA INCOMPLETE RIGHT BUNDLE BRANCH BLOCK NONSPECIFIC ST & T-WAVE ABNORMALITY) Additional studies: echo 01/2017: Impressions: LVEF 60%. Normal LV chamber size, wall thickness and function. Mild left ventricular diastolic dysfunction. Normal right ventricular structure and function. No evidence of pulmonary hypertension. There is a small pericardial effusion present anteriorly and adjacent to the right atrium. There is no echocardiographic evidence of tamponade. Anesthesia Exam Selected Entries 06/09/17 06:38 Temperature 98.0 F Pulse Rate 61 Respiratory Rate 18 Blood Pressure 155/74 O2 Sat by Pulse Oximetry 96 Weight: 69kg NPO (# of Hours): 8 - HEENT Pupil (Motor): EOMI Mallampati: II Teeth: Normal Oral Opening: Greater than 3 - PROCESS COORDINATOR LOC: Oriented PROCESS COORDINATOR Motor: Normal RUE, Normal LUE, Normal RLE, Normal LLE, Normal Face PROCESS COORDINATOR Sensory: Normal: RUE, LUE, RLE, LLE, Face - Cardiac Rhythm: Regular Murmur: None - Pulmonary Breath Sounds: bilateral Clear Respiratory Effort: Symmetrical Anesthesia Assess/Plan ASA Score: 3 Modified [place] Scale for Level of Consciousness: Cooperative, oriented, and tranquil Anesthetic Plan: General Monitoring Plan: Standard Monitors, A-Line (possible) Recovery Plan: PACU (agrees to GA)
[2017-06-09] MEDS ORDERED: Heparin 1,000 UNITS/500 mL 500 ML ONE (06:59)
[2017-06-09] MEDS ORDERED: Plasma-Lyte A (PH 7.4) 1,000 ML IVC SCH (07:00)
[2017-06-09] MEDS: Albuterol 2.5 MG/3 ML NEBULIZER IH ONE ×2 (07:00→12:42)
[2017-06-09] MEDS ORDERED: Lidocaine -MPF 2% 2 ML VIAL ONE (07:02)
[2017-06-09] MEDS ORDERED: Dexamethasone 4 MG/ML VIAL ONE (07:02)
[2017-06-09] MEDS ORDERED: *HR* Rocuronium Bromide 50 MG/5 ML VIAL ONE (07:02)
[2017-06-09] MEDS ORDERED: Ondansetron 4 MG/2 ML VIAL ONE (07:02)
[2017-06-09] MEDS ORDERED: *HR* Propofol 200 MG/20 ML VIAL IVP ONE (07:02)
[2017-06-09] MEDS ORDERED: *HR* Midazolam HCl 2 MG/2 ML VIAL ONE (07:03)
[2017-06-09] MEDS ORDERED: *HR* FentaNYL (PF) 100 MCG/2 ML VIAL ONE (07:03)
[2017-06-09] MEDS ORDERED: *HR* Phenylephrine 10 MG/ML VIAL ONE (07:03)
[2017-06-09] MEDS ORDERED: Albuterol 2.5 MG/3 ML NEBULIZER ONE (07:12)
[2017-06-09] MEDS ORDERED: Heparin 1,000 UNITS/500 mL 1,500 ML ONE (07:15)
[2017-06-09] MEDS ORDERED: Vancomycin 1,000 MG VIAL ONE (07:16)
[2017-06-09] MEDS ORDERED: *HR* Remifentanil 2 MG VIAL IVP ONE ×2 (07:18→07:22)
--- NOTE | 2017-06-09 07:42 | History & Physical Report ---
Date of Encounter: 06/09/17 Time of Encounter: 07:25 24 Hour HP Update - Instructions Instructions: If the History and Physical is less than 30 days old and was completed prior to A.M. admission and or procedure and has NOT been updated on calendar day of procedure please complete this update prior to performing procedure. - Update Patient reports changes in Medical Condition: No Changes in examination, assessment, or condition: No Changes in Medication: No Preop tests/diagnostics Reviewed: Yes Surgery Remains Indicated: Yes Consent for Planned Operative Procedure(s) Verified: Yes - Pre-Operative Checklist Preoperative Checklist Indicated: Yes Prophylactic Antibiotic Ordered: Yes (Vancomycin due to MRSA risk) Home Medications Include Beta Bam: Yes Beta Bam Taken Today (Day of Surgery): Yes Beta Bam Taken Yesterday (Day Prior to Surgery): Yes Is VTE Prophylaxis Indicated?: Yes
[2017-06-09] MEDS ORDERED: Vancomycin 1,000 MG, Sodium Chloride IRRigation 1,000 ML IR ONE (07:45)
[2017-06-09] MEDS ORDERED: Ringers Solution, Lactated 1,000 ML IVC SCH (08:05)
[2017-06-09] MEDS ORDERED: *HR* Heparin 5,000 UNIT/ML VIAL ONE (08:40)
[2017-06-09] MEDS ORDERED: EPHEDrine 50 MG/ML VIAL ONE (08:48)
[2017-06-09] MEDS ORDERED: Ondansetron 4 MG/2 ML VIAL IVP PRN (08:54)
[2017-06-09] MEDS ORDERED: *HR* Labetalol 20 MG/4 ML SYRINGE IVP PRN ×2 (08:54→12:49)
[2017-06-09] MEDS ORDERED: *HR* Midazolam HCl 2 MG/2 ML VIAL IVP PRN (08:54)
[2017-06-09] MEDS ORDERED: *HR* OxyCODONE Immed Rel 5 MG TABLET PO PRN ×2 (08:54→12:49)
[2017-06-09] MEDS ORDERED: Acetaminophen IV 1,000 MG/100 ML INFUS..BTL ONE (08:58)
[2017-06-09] MEDS ORDERED: *HR* HYDROmorphone 2 MG TABLET PO SCH (09:00)
[2017-06-09] MEDS ORDERED: Protamine Sulfate 50 MG/5 ML VIAL IVP ONE (09:50)
[2017-06-09] MEDS ORDERED: Neostigmine Methylsulfate 3 MG/3 ML SYRINGE ONE (09:57)
--- NOTE | 2017-06-09 10:27 | Operative Note ---
Date of procedure: 06/09/17 Pre-op diagnosis: Peripheral Vascular Disease with Disabling Claudication Post-op diagnosis: same Procedure: 1. Right common femoral to left common femoral endarterectomy. 2. Left common and deep femoral endarterectomy. Complications: None Anesthesia: DONNAA Surgeon: Ben Fang Was there an health assistant present: Yes Cup Trimming Machine Operator: Elier Lewis Estimated blood loss (cc): 100 Specimen: left femoral plaque Condition: stable Disposition: PACU Procedure in Detail: Indications: The patient is a 66 year old male with a remote history of hypertension, hyperlipidemia and tobacco abuse. She was found to have a right iliac artery stenosis and a left iliac artery occlusion. She previously underwent a right iliac stent. Revascularization was recommended for symptomatic relief from her chronic left iliac artery occlusion. Procedure: The patient was identified in the preoperative area. The risks, benefits, and alternatives of the procedure were discussed. All questions were answered. The patient was taken to the operating room and placed in supine position on the operating room table. After the induction of general endotracheal anesthesia, he was cleaned and draped in normal sterile fashion. An oblique incision was made over the right groin sharply. Hemostasis was obtained with electrocautery. Through a process of blunt, sharp, and electrocautery dissection, the right femoral vessels were dissected circumferentially and surrounded with vessel loops. An oblique incision was then made over the left groin sharply. Hemostasis was obtained with electrocautery. Through a process of blunt, sharp, and electrocautery dissection, the left femoral vessels were dissected circumferentially and surrounded with vessel loops. A graft was tunneled between the right and left femoral incisions. The patient received 5000 units of heparin intravenously. An arteriotomy was then made in the right commn femoral artery. The graft was then cut to fit the arterial defect. The graft was sutured in place to the artery with a running 6-0 Prolene. The vessels were flushed through the graft. Heparinized saline was infused into the graft lumen. The graft was clamped with an atraumatic clamp. Flow was restored in the right femoral vessels. Tension was applied to the left femoral artery vessel loops. An arteriotomy was made in the left common femoral artery. A large, partially occlusive plaque was noted to be present in the left common femoral artery and extending into the deep femoral artery. Release of the distal vessel loop revealed minimal retrograde flow from the left deep femoral artery. Using a dental freer a leftt common and deep femoral endarterectomy was performed. Endpoints were inspected and no elevated flaps were noted. The deep femoral artery was noted to have significant retrograde flow after the endarterectomy. The graft was cut to fit the left femroal arteriotomy. The graft was anastamosed with a running 6-0 Prolene. Prior to completing the anastamosis, the left femoral vessels were flushed through the graft anastamosis and heparin was infused into the lumen. The anastamosis was completed and flow was restored in the left lower extremity. Thrombin and gelfoam were used at the proximal anastamosis. Polyphasic signals were noted distal to the anastamoses. The wounds were irrigated with antibiotic-containing saline. Platelet rich and platelet poor plasma were infused into the wounds. Meticulous hemostasis was obtained throughout the wound with electrocautery. Wounds were reapproximated with layers of 2-0 and 3-0 Vicryl. Skin was reapproximated with 3-0 Monocryl. Sterile dressing was applied. The patient was extubated and taken to recovery room in stable condition.
--- NOTE | 2017-06-09 10:43 | Discharge Summary ---
<JoshuaElier J - Last Filed: 06/10/17 14:46> Date of Encounter: 06/10/17 Time of Encounter: 14:46 - Discharge Diagnosis (1) PAD (peripheral artery disease) Priority: Primary Status: Chronic Comments: Patient has known iliac occlusive disease. She is status post right iliac artery intervention. She has a left iliac artery occlusion. - Discharge Medications Prescriptions: Prochlorperazine Maleate [Compazine] 10 mg PO Q8HR PRN #7 tablet PRN Reason: Nausea And Vomiting Home Medications: Calcitriol [Rocaltrol] 0.25 mcg PO QAM 04/24/15 [History] Cholecalciferol (Vitamin D3) [Vitamin D3] 5,000 unit PO QPM 04/24/15 [History] Albuterol Sulfate [Proair Hfa] 2 puff IH Q4H PRN 09/20/16 [History] EPINEPHrine [Epipen] 0.3 mg IM ONCE PRN 09/20/16 [History] hydrOXYzine HCl [Hydroxyzine HCl] 25 mg PO TID PRN 09/20/16 [History] Levothyroxine [Synthroid] 88 mcg PO 0630 04/20/17 [History] Multivitamin [One Daily Multivitamin] 1 each PO DAILY 04/20/17 [History] Metoprolol [Lopressor] 25 mg PO BID #60 tablet 04/21/17 [Rx] Clopidogrel [Plavix] 75 mg PO DAILY #30 tablet 05/18/17 [Rx] Calcium Carbonate/Vitamin D3 [Calcium 600 + Vit D Tablet] 1 tab PO DAILY [History] OxyCODONE/APAP 5/325 [Percocet 5/325 MG] 1 each PO Q6HR PRN 6 Days #24 tablet [Rx] Pravastatin Sodium [Pravachol] 20 mg PO HS 06/09/17 [History] Rivaroxaban [Xarelto] 20 mg PO 1700 06/09/17 [History] Prochlorperazine Maleate [Compazine] 10 mg PO Q8HR PRN #7 tablet 06/10/17 [Rx] Allergies/Adverse Reactions: 3 Allergy/AdvReac Type Severity Reaction Status Date / Time fish oil AdvReac Hives Verified 06/09/17 07:00 flaxseed AdvReac Hives Verified 06/09/17 07:00 mold AdvReac Hives Verified 06/09/17 07:00 soybean AdvReac Hives Verified 06/09/17 07:00 Date of admission: 06/09/17 12:16 Primary care physician: Katt Gunn CNP Consults: None Procedure(s) Performed: Right to left femoral-femoral bypass graft with 6 mm PTFE and left femoral endarterectomy Discharging clinician: Elier Lewis Anticipated date of discharge: 06/10/17 - Patient Status Disposition: Home, Self-Care Condition: Good Functional capacity at discharge: independent ambulation Overall status at discharge: patient is progressing back to baseline - Discharge Instructions Instructions: Prochlorperazine (By mouth), Peripheral Vascular Disorders (DC) Follow Up With: Ben Fang MD [Partnered Physician] - 07/11/17 9:50 am Katt Gunn CNP [Primary Care Provider] - 06/14/17 10:35 am Additional Instructions: Remove bilateral surgical dressings in 24 hours. Keep surgical sites dry for total of 5 days following surgery. Patient is not to lift more than 10 pounds. Patient is to avoid manual labor or strenuous exercise. Patient is to ambulate a minimum of 20 minutes twice a day. Patient may use stairs. Patient is not to drive an automobile. Resume usual home medications. - Diet and Activity Activity: increase activity as tolerated Diet: advance to your usual diet - Hospital Course Hospital course: Ms. Carrera is a 66 year old female With peripheral vascular occlusive disease and left lower extremity claudication. The patient underwent a right to left femoral-femoral bypass graft with 6 mm PTFE under general endotracheal anesthesia. There were no periprocedural complications. The patient tolerated the operation well. The patient was ambulatory on postoperative day #1. Patient had Doppler signals at her left ankle. The patient was felt fit for discharge in the afternoon of postoperative day #1. Information regarding wound care and medications were reviewed with the patient upon discharge. - Time Spent with Patient Total time spent providing and/or coordinating discharge services: Exam General: Present: Conversant, No Apparent Distress, Well developed, Well nourished HEENT: Present: Atraumatic, Normocephaly Neck: Absent: JVD Cardiac: Present: Reg Rate and Rhythm Neuro: Present: Alert and responsive, No focal deficits noted, Cranial nerves grossly intact, Motor nerves grossly intact, Sensory nerves grossly intact Vascular: Present: Surgical incisions (Dressings are intact over the bilateral femoral incisions.), Other (Patient has a bruit over the femoral-femoral bypass graft.) <Ben Fang - Last Filed: 06/20/17 06:35> Date of Encounter: 06/09/17 - Discharge Diagnosis (1) Atherosclerosis of [place] arteries of extremities with intermittent claudication, bilateral legs Priority: Primary Status: Chronic (2) Paroxysmal atrial fibrillation Priority: Secondary Status: Chronic (3) Mixed hyperlipidemia Priority: Secondary Status: Chronic (4) Tobacco abuse Priority: Secondary Status: Chronic (5) HTN (hypertension) Priority: Secondary Status: Chronic Qualifiers: Hypertension type: essential hypertension Qualified Code(s): I10 - Essential (primary) hypertension (6) Acute blood loss anemia Priority: Secondary Status: Acute Comments: The patient has acute expected postoperative blood loss anemia. Primary care physician: Katt Gunn CNP Discharging clinician: Ben Cuellar [facility] Hospital Course Hospital course: Ms. Carrera is a 66 year old female - Time Spent with Patient Total time spent providing and/or coordinating discharge services: Exam Vital Signs, Last 4 Hours Resp Pulse Ox 06/09/17 07:02 18 96
[2017-06-09] MEDS: MORPHINE SUL Oral CONC 10 MG/0.5 ML ORAL.SYG SL PRN ×2 (11:03→11:13)
--- NOTE | 2017-06-09 11:20 | Operative Note ---
Date of procedure: 06/09/17 Pre-op diagnosis: PAD/claudication Post-op diagnosis: same Procedure: Right to left femoral-femoral bypass graft with 6 mm PTFE Left common and profunda femoris artery endarterectomy Complications: None Anesthesia: GETA Surgeon: Ben Fang Co-Surgeon: Elier Lewis Was there an mechanic assistant present: No Estimated blood loss (cc): 100 Specimen: Left femoral plaque Condition: stable Disposition: PACU Procedure in Detail: History Mrs. Carrera is a 66-year-old white female who has a history of bilateral lower extremity claudication. Angiography had revealed a left iliac artery occlusion and a stenotic right iliac artery system. She had undergone a successful endovascular intervention for the right iliac system. She now comes to the operating room to revascularize the left lower extremity. Procedure After informed consent was obtained the patient was taken to the operating room. General endotracheal anesthesia was established. The abdomen groin and upper thighs were sterilely prepped and draped. A timeout protocol was observed. Incisions were then made in each groin. Dissection was carried down to reveal the common femoral and femoral artery bifurcation. The Star closure device on the right side was identified. A 2 team surgical approach was utilized for this procedure due to the patient's comorbid conditions. This allowed for complex intraoperative decision-making and to minimize complications associated with prolonged general endotracheal anesthesia. Heparin was administered after a deep subcutaneous tunnel was created from the right to the left side. A 6 mm PTFE graft was selected was passed through the tunnel. Once the 3 minutes had passed the femoral arteries were then opened over the anterior aspect of the common femoral arteries bilaterally. On the right side the dissection was carried down such that the Star closure device could be resected. Plaque was noted on the posterior aspect of the vessel but it was not occlusive. On the left side the patient had significant plaque accumulation both in the common femoral artery and in the profunda femoris. An endarterectomy was then performed of the ease vessels. The areas flushed with heparinized saline. The anastomoses were then performed simultaneously. The donor site was the right side which was initiated first and then the left side which was the recipient side was then initiated second. After appropriate backbleeding and flushing the graft was opened. Excellent pulsatile flow was observed through the graft. The wounds were then irrigated and hemostasis achieved with the use of topical agents as well as the administration of protamine. The wounds were then closed in layers using absorbable suture. Dry sterile dressings were applied. The patient was extubated in the operating room and taken to the recovery room in stable condition. There were no intraoperative complications.
--- NOTE | 2017-06-09 12:05 | Anesthesia Evaluation Post Op ---
Date of Encounter: 06/09/17 Time of Encounter: 12:05 - Vital Signs Vital Signs: Last Vital Signs Temp 97.2 F L 06/09/17 11:45 Pulse 58 06/09/17 11:45 Resp 12 06/09/17 11:45 BP 157/68 06/09/17 11:45 Pulse Ox 97 06/09/17 11:45 - Lungs Lungs: Clear Ascult./Percussion - Airway Airway: Non-obstructed - Cardiovascular Regular Rate - Mental Status Mental Status: Alert & Oriented, Answers Appropriately - Pain Pain Scale: 4 - Nausea Vomiting Nausea Vomiting: Not Present - Hydration Hydration: NPO - Discharge PostOp Status: Transfer Patient to floor
[2017-06-09] MEDS ORDERED: NON-FORMULARY MEDICATION 1 EACH EACH (Hydroxyzine Hcl [Hydroxyzine Hcl] 25 MG) PO PRN (12:49)
[2017-06-09] MEDS ORDERED: *HR* HYDROcodone/Acet 5/325 mg TABLET PO PRN (12:49)
[2017-06-09] MEDS ORDERED: Naloxone 0.4 MG/ML INJ IVP PRN ×2 (12:49)
[2017-06-09] MEDS ORDERED: Acetaminophen 325 MG TABLET PO PRN (12:49)
[2017-06-09] MEDS ORDERED: hydrOXYzine pamoate 25 MG CAPSULE PO PRN (13:00)
[2017-06-09] MEDS: *HR* Metoprolol 5 MG/5 ML VIAL IVP SCH ×3 (14:23→23:37)
[2017-06-09] MEDS: CeFAZolin Premix DUPLEX 2,000 MG/50 ML BAG IVPB SCH ×2 (17:10→23:36)
[2017-06-09] MEDS: Ondansetron 4 MG/2 ML VIAL IVP PRN (17:21)
[2017-06-09] MEDS ORDERED: Cholecalciferol (D-3) 1,000 UNIT TABLET PO SCH (18:00)
[2017-06-10] MEDS: Ondansetron 4 MG/2 ML VIAL IVP PRN (04:03)
[2017-06-10 04:10] LABS: Basophils % 0.2 %; Eosinophils % 0.4 %; Hematocrit 33.9 % (35.3-44.9); Hemoglobin 11.2 g/dL (11.5-15.4); Immature Granulocytes % 0.4 % (0-4); Lymphocytes # 1.5 K/mcL (0.6-4.6); Mean Corpuscular Hemoglobin 28.6 pg (28.0-33.3); Mean Corpuscular Volume 86.7 fL (83.0-100.0); Mean Platelet Volume 9.8 fL (9.4-12.4); Monocytes # 0.6 K/mcL (0.0-1.3); Monocytes % 7.3 %; Platelet Count 134 K/mcL (140-400); Red Blood Count 3.91 M/mcL (3.82-4.97); Red Cell Distribution Width 12.7 % (11.5-14.5); Segmented Neutrophils % 73.7 %
[2017-06-10] MEDS: *HR* Metoprolol 5 MG/5 ML VIAL IVP SCH (05:39)
[2017-06-10] MEDS ORDERED: *HR* Heparin 5,000 UNIT/ML VIAL SQ SCH ×2 (06:00)
[2017-06-10 07:14] VITALS: BP 126/60
[2017-06-10] MEDS ORDERED: Multivit/Ca/Min/Fe/FA 1 TAB TABLET PO SCH (09:00)
[2017-06-10] MEDS ORDERED: (Calcium Carbonate/Vitamin D3 [Calcium 600 + Vit D Ta) PO SCH (09:00)
[2017-06-10] MEDS ORDERED: *HR* Rivaroxaban 10 MG TABLET PO SCH (17:00)
[2017-06-11] MEDS ORDERED: Cholecalciferol (D-3) 1,000 UNIT TABLET PO SCH (09:00)
== END 2017-06-10 17:20 | disposition home or self-care (01) | DRG 254 ==
LOC: SAMDAY 06:18 → 2NNU 12:16
PROVIDERS: ADMIT Surgery; ATTEND Surgery
PROC: VASFFBG (ICD-10-PCS; 2017-06-09 07:45)

== ENCOUNTER 2020-01-26 19:15 | Inpatient (IN) ==
[2020-01-26] MEDS ORDERED: *HR* FentaNYL (PF) 100 MCG/2 ML VIAL IVP ONE (21:31)
[2020-01-26 21:57] LABS: Basophils % 0.3 %; Eosinophils % 0.2 %; Hematocrit 41.7 % (35.3-44.9); Hemoglobin 13.8 g/dL (11.5-15.4); Immature Granulocytes % 0.3 % (0-4); Lymphocytes # 1.3 K/mcL (0.6-4.6); Lymphocytes % 11.8 %; Mean Corpuscular HGB Conc 33.1 g/dL (31.6-35.5); Mean Corpuscular Hemoglobin 29.5 pg (28.0-33.3); Mean Corpuscular Volume 89.1 fL (83.0-100.0); Mean Platelet Volume 10.9 fL (9.4-12.4); Monocytes # 0.5 K/mcL (0.0-1.3); Monocytes % 4.5 %; Platelet Count 182 K/mcL (140-400); Red Blood Count 4.68 M/mcL (3.82-4.97); Red Cell Distribution Width 11.7 % (11.5-14.5); Segmented Neutrophils % 82.9 %; White Blood Count 10.9 K/mcL (4.3-11.1)
[2020-01-26 22:08] LABS: INR 1.2; Prothrombin Time 13.4 Seconds (9.4-12.1)
[2020-01-26 22:11] LABS: Activated Partial Thrombo Time 28.5 Seconds (26.0-36.0)
[2020-01-26 22:34] LABS: Bilirubin,Urine Negative (Negative); Blood,Urine Negative (Negative); Clarity,Urine Clear (Clear); Color,Urine Colorless (Yellow); Glucose,Urine (UA) Normal (Normal); Ketones,Urine 10 mg/dL (Negative); Leukocyte Esterase,Urine Negative (Negative); Nitrite,Urine Negative (Negative); Protein,Urine Negative (Neg-Trace); Specific Gravity,Urine 1.006 (1.010-1.025); Urobilinogen,Urine Normal (Normal)
[2020-01-27] MEDS ORDERED: Perflutren Lipid Microsphere 1.3 ML in 0.9 % Sodium Chloride 8.7 ML IVP PRN (00:14)
[2020-01-27] MEDS ORDERED: *HR* Heparin 5,000 UNIT/ML VIAL IVP ONE (01:15)
[2020-01-27] MEDS ORDERED: Heparin 25,000UNIT/250ML 1/2NS 25,000 UNIT/250 ML IV.SOLN IVC SCH (01:15)
[2020-01-27] MEDS ORDERED: *HR* Heparin 5,000 UNIT/ML VIAL IVP PRN ×2 (01:15)
[2020-01-27] MEDS ORDERED: Melatonin 3 MG TABLET PO ONE (01:16)
[2020-01-27] MEDS ORDERED: Naloxone 0.4 MG/ML INJ IVP PRN (01:17)
[2020-01-27] MEDS ORDERED: tiZANidine 4 MG TABLET PO ONE (01:29)
[2020-01-27] MEDS: *HR* OxyCODONE Immed Rel 5 MG TABLET PO PRN ×3 (01:56→23:36)
[2020-01-27] MEDS: Ondansetron 4 MG/2 ML VIAL IVP PRN (01:58)
[2020-01-27 02:37] LABS: Heparin anti-factor XA UFH 0.3 IU/mL (0.30-0.70)
[2020-01-27 02:38] LABS: INR 1.2; Prothrombin Time 13.3 Seconds (9.4-12.1)
[2020-01-27 02:52] LABS: Alanine Aminotransferase 7 Units/L (7-52); Albumin 4.1 g/dL (3.5-5.7); Albumin/Globulin Ratio 1.5 (1.1-2.2); Alkaline Phosphatase 77 Units/L (34-104); Aspartate Amino Transferase 13 Units/L (13-39); BUN/Creatinine Ratio 21 (6-26); Bilirubin,Total 0.8 mg/dL (0.3-1.0); Blood Urea Nitrogen 14 mg/dL (8-23); Calcium 9.1 mg/dL (8.6-10.3); Carbon Dioxide 24 mEq/L (23-29); Chloride 104 mEq/L (98-107); Chol/HDL Ratio 4.5 (0-4.9); Cholesterol 196 mg/dL (< 200); Globulin 2.7 g/dL (2.4-3.5); Glucose 137 mg/dL (70-105); HDL Cholesterol 44 mg/dL (40-59); LDL Cholesterol,Calculated 135 mg/dL (< 100); Magnesium 1.8 mg/dL (1.6-2.6); Osmolality,Calculated 287 (280-300); Phosphorous 3.1 mg/dL (2.7-4.5); Potassium 3.9 mEq/L (3.5-5.1); Sodium 137 mEq/L (136-145); Total Protein 6.8 g/dL (6.4-8.9); Triglycerides 86 mg/dL (< 150); eGFR For African Americans > 60 (> 60); eGFR For Non-African Americans > 60 (> 60)
[2020-01-27 03:03] LABS: Thyroid Stimulating Hormone 0.303 mcIU/mL (0.340-5.600)
[2020-01-27] MEDS: *HR* HYDROcodone/Acet 5/325 mg TABLET PO PRN ×2 (06:01→19:53)
[2020-01-27] MEDS ORDERED: ALPRAZolam 0.25 MG TABLET PO PRN (15:28)
[2020-01-27] MEDS: Acetaminophen 325 MG TABLET PO PRN (20:27)
[2020-01-28 02:48] LABS: Hematocrit 37.2 % (35.3-44.9); Hemoglobin 11.9 g/dL (11.5-15.4); Immature Platelets 5.5 % (1.1-6.1); Mean Corpuscular Hemoglobin 28.3 pg (28.0-33.3); Mean Corpuscular Volume 88.6 fL (83.0-100.0); Mean Platelet Volume 10.1 fL (9.4-12.4); Red Blood Count 4.2 M/mcL (3.82-4.97); Red Cell Distribution Width 11.7 % (11.5-14.5); White Blood Count 6.3 K/mcL (4.3-11.1)
[2020-01-28 02:59] LABS: BUN/Creatinine Ratio 21 (6-26); Blood Urea Nitrogen 17 mg/dL (8-23); Calcium 8.6 mg/dL (8.6-10.3); Carbon Dioxide 26 mEq/L (23-29); Chloride 103 mEq/L (98-107); Glucose 86 mg/dL (70-105); Osmolality,Calculated 283 (280-300); Potassium 3.9 mEq/L (3.5-5.1); Sodium 136 mEq/L (136-145); eGFR For African Americans > 60 (> 60); eGFR For Non-African Americans > 60 (> 60)
[2020-01-28] MEDS: *HR* OxyCODONE Immed Rel 5 MG TABLET PO PRN (05:54)
[2020-01-28] MEDS: amLODIPine 5 MG TABLET PO SCH (07:50)
[2020-01-28] MEDS: calcitrioL 0.25 MCG CAPSULE PO SCH (07:50)
[2020-01-28] MEDS ORDERED: *HR* Rivaroxaban 10 MG TABLET PO SCH (12:45)
[2020-01-28] MEDS ORDERED: TOTAL JOINT MIXTURE (100ML) INTRAART ONE (13:00)
[2020-01-28] MEDS ORDERED: Povidone-Iodine 45 ML, Sodium Chloride IRRigation 1,000 ML IR ONE (13:00)
[2020-01-28] MEDS ORDERED: CeFAZolin Syr 2,000MG/20 ML 2,000 MG/20 ML SYRINGE IVPB ONE (14:00)
[2020-01-28] MEDS ORDERED: Vancomycin 1,000 MG VIAL ONE ×2 (14:08→18:06)
[2020-01-28] MEDS ORDERED: Tetracaine/PF 20 MG/2 ML AMPUL ONE (14:10)
[2020-01-28] MEDS ORDERED: Lidocaine -MPF 2% 2 ML VIAL ONE (14:28)
[2020-01-28] MEDS ORDERED: *HR* FentaNYL (PF) 100 MCG/2 ML VIAL ONE (14:28)
[2020-01-28] MEDS ORDERED: *HR* Propofol 200 MG/20 ML VIAL IVP ONE (14:29)
[2020-01-28] MEDS ORDERED: *HR* PHENYLEPHRINE 1,000 MCG/10 ML SYRINGE IVP ONE (14:30)
[2020-01-28] MEDS ORDERED: EPHEDrine 50 MG/ML VIAL ONE (14:31)
[2020-01-28] MEDS ORDERED: Ketorolac 15 MG/ML VIAL IVP PRN (14:40)
[2020-01-28] MEDS ORDERED: Ondansetron 4 MG/2 ML VIAL IVP PRN (14:40)
[2020-01-28] MEDS ORDERED: *HR* OxyCODONE Immed Rel 5 MG TABLET PO PRN (14:40)
[2020-01-28] MEDS ORDERED: EPINEPHrine 1 MG/ML VIAL ONE (14:41)
[2020-01-28] MEDS ORDERED: Ringers Solution, Lactated 1,000 ML IVC SCH ×2 (14:45→20:00)
[2020-01-28] MEDS ORDERED: Tranexamic Acid 1,000 MG/10 ML VIAL ONE (15:15)
[2020-01-28] MEDS ORDERED: NON-FORMULARY MEDICATION 1 EACH EACH (Rivaroxaban [Xarelto] 20 MG) PO SCH (17:00)
[2020-01-28] MEDS ORDERED: Albumin Human 5% 12.5 GM/250 ML IV.SOLN ONE ×2 (17:18→17:33)
[2020-01-28 17:28] LABS: VBG Base Excess -10 mEq/L; VBG Chloride 103 mEq/L (98-107); VBG Glucose 60 mg/dl (65-95); VBG HCO3 17 mEq/L (21-27); VBG Oxygen Saturation 68 %; VBG PCO2 45 mmHg (41-51); VBG PH 7.19 pH Units (7.32-7.42); VBG PO2 44 mmHg (25-50); VBG Total CO2 19 mEq/L
[2020-01-28] MEDS ORDERED: *HR* Vasopressin 20 UNIT/ML VIAL ONE (18:06)
[2020-01-28 18:29] LABS: VBG Base Excess -8 mEq/L; VBG Chloride 108 mEq/L (98-107); VBG Glucose 83 mg/dl (65-95); VBG HCO3 18 mEq/L (21-27); VBG Ionized Calcium 1.08 mmol/L (1.15-1.35); VBG Oxygen Saturation 94 %; VBG PCO2 42 mmHg (41-51); VBG PH 7.24 pH Units (7.32-7.42); VBG PO2 84 mmHg (25-50); VBG Total CO2 20 mEq/L
[2020-01-28] MEDS ORDERED: Sodium Bicarbonate 50 MEQ/50 ML VIAL ONE (18:29)
[2020-01-28] MEDS ORDERED: MOM Conc 10 ML UD.LIQ PO PRN (19:57)
[2020-01-28] MEDS ORDERED: Sennosides 8.6 MG TABLET PO PRN (19:57)
[2020-01-28] MEDS ORDERED: *HR* Promethazine 25 MG/ML VIAL IVP PRN (19:57)
[2020-01-28] MEDS: *HR* HYDROcodone/Acet 5/325 mg TABLET PO PRN (22:42)
[2020-01-28 23:03] LABS: Bilirubin,Urine Negative (Negative); Blood,Urine Negative (Negative); Clarity,Urine Clear (Clear); Color,Urine Yellow (Yellow); Glucose,Urine (UA) Normal (Normal); Ketones,Urine 60 mg/dL (Negative); Leukocyte Esterase,Urine Negative (Negative); Nitrite,Urine Negative (Negative); PH,Urine 5.5 pH Units (5.0-8.0); Protein,Urine Trace mg/dL (Neg-Trace); Specific Gravity,Urine 1.019 (1.010-1.025); Urobilinogen,Urine Normal (Normal)
[2020-01-29] MEDS: CeFAZolin 2 GM/120 ML BAG IVPB SCH ×2 (01:19→07:54)
[2020-01-29] MEDS: *HR* Rivaroxaban 10 MG TABLET PO SCH ×2 (01:22→16:36)
[2020-01-29 06:40] LABS: Calcium 7.8 mg/dL (8.6-10.3)
[2020-01-29 06:46] LABS: Basophils % 0.3 %; Eosinophils % 0.6 %; Immature Granulocytes % 0.3 % (0-4)
[2020-01-29 06:48] LABS: Hematocrit 24.4 % (35.3-44.9); Hemoglobin 8.3 g/dL (11.5-15.4); Immature Platelets 5.9 % (1.1-6.1); Lymphocytes # 0.8 K/mcL (0.6-4.6); Lymphocytes % 13.1 %; Mean Corpuscular Hemoglobin 30.3 pg (28.0-33.3); Mean Corpuscular Volume 89.1 fL (83.0-100.0); Monocytes # 0.6 K/mcL (0.0-1.3); Monocytes % 9.5 %; Red Blood Count 2.74 M/mcL (3.82-4.97); Red Cell Distribution Width 12.2 % (11.5-14.5); Segmented Neutrophils % 76.2 %; White Blood Count 6.2 K/mcL (4.3-11.1)
[2020-01-29 07:21] LABS: Neutrophils # 4.7 K/mcL (1.6-8.9); Platelet Count 91 K/mcL (140-400)
[2020-01-29] MEDS: Multivit/Ca/Min/Fe/FA 1 TAB TABLET PO SCH (07:52)
[2020-01-29] MEDS: amLODIPine 5 MG TABLET PO SCH (07:52)
[2020-01-29] MEDS: calcitrioL 0.25 MCG CAPSULE PO SCH (07:52)
[2020-01-29] MEDS: Ascorbic Acid 500 MG TABLET PO SCH ×2 (07:53→16:37)
[2020-01-29] MEDS: *HR* OxyCODONE Immed Rel 5 MG TABLET PO PRN ×2 (08:03→22:23)
[2020-01-29 14:40] LABS: Hematocrit 24.4 % (35.3-44.9); Hemoglobin 8.4 g/dL (11.5-15.4)
[2020-01-29] MEDS: Acetaminophen 325 MG TABLET PO PRN (16:36)
[2020-01-29 16:56] LABS: ABG Base Excess 3 mEq/L (-2 to 3); ABG HCO3 27 mEq/L (21-27); ABG Oxygen Saturation 94 % (95-98); ABG PCO2 38 mmHg (35-45); ABG PH 7.46 pH Units (7.32-7.45); ABG PO2 66 mmHg (85-104); ABG TCO2 28 mEq/L (20-26)
[2020-01-29] MEDS ORDERED: Ipratropium/Albuterol Neb 3 ML IH PRN (20:35)
[2020-01-30] MEDS: Acetaminophen 325 MG TABLET PO PRN (00:28)
[2020-01-30 04:41] LABS: Basophils % 0.3 %; Hemoglobin 7.6 g/dL (11.5-15.4)
[2020-01-30 04:43] LABS: Eosinophils # 0.1 K/mcL (0.0-0.6); Eosinophils % 1.2 %; Hematocrit 23.3 % (35.3-44.9); Immature Granulocytes % 0.3 % (0-4); Immature Platelets 7.2 % (1.1-6.1); Lymphocytes # 0.7 K/mcL (0.6-4.6); Lymphocytes % 9.5 %; Mean Corpuscular HGB Conc 32.6 g/dL (31.6-35.5); Mean Corpuscular Volume 88.9 fL (83.0-100.0); Mean Platelet Volume 11.4 fL (9.4-12.4); Monocytes # 0.8 K/mcL (0.0-1.3); Monocytes % 10.1 %; Neutrophils # 6.1 K/mcL (1.6-8.9); Red Blood Count 2.62 M/mcL (3.82-4.97); Red Cell Distribution Width 12.3 % (11.5-14.5); Segmented Neutrophils % 78.6 %; White Blood Count 7.8 K/mcL (4.3-11.1)
[2020-01-30 04:49] LABS: Platelet Count 93 K/mcL (140-400)
[2020-01-30 04:54] LABS: BUN/Creatinine Ratio 21 (6-26); Blood Urea Nitrogen 15 mg/dL (8-23); Calcium 8.3 mg/dL (8.6-10.3); Carbon Dioxide 30 mEq/L (23-29); Chloride 104 mEq/L (98-107); Glucose 135 mg/dL (70-105); Osmolality,Calculated 287 (280-300); Potassium 4.1 mEq/L (3.5-5.1); Sodium 137 mEq/L (136-145); eGFR For African Americans > 60 (> 60); eGFR For Non-African Americans > 60 (> 60)
[2020-01-30] MEDS: *HR* OxyCODONE Immed Rel 5 MG TABLET PO PRN ×3 (05:57→22:30)
[2020-01-30] MEDS ORDERED: 0.9 % Sodium Chloride 250 ML ONE (07:37)
[2020-01-30] MEDS: amLODIPine 5 MG TABLET PO SCH (08:40)
[2020-01-30] MEDS: calcitrioL 0.25 MCG CAPSULE PO SCH (08:40)
[2020-01-30] MEDS: Ascorbic Acid 500 MG TABLET PO SCH ×2 (08:40→17:18)
[2020-01-30] MEDS: Multivit/Ca/Min/Fe/FA 1 TAB TABLET PO SCH (08:40)
[2020-01-30 13:18] LABS: Basophils % 0.3 %; Eosinophils # 0.1 K/mcL (0.0-0.6); Eosinophils % 1.2 %; Hematocrit 27.6 % (35.3-44.9); Immature Granulocytes % 0.5 % (0-4); Immature Platelets 5.9 % (1.1-6.1); Lymphocytes # 0.7 K/mcL (0.6-4.6); Lymphocytes % 9.9 %; Mean Corpuscular HGB Conc 32.6 g/dL (31.6-35.5); Mean Corpuscular Hemoglobin 29.5 pg (28.0-33.3); Mean Corpuscular Volume 90.5 fL (83.0-100.0); Mean Platelet Volume 11.2 fL (9.4-12.4); Monocytes # 0.7 K/mcL (0.0-1.3); Monocytes % 9.5 %; Neutrophils # 5.9 K/mcL (1.6-8.9); Platelet Count 108 K/mcL (140-400); Red Blood Count 3.05 M/mcL (3.82-4.97); Red Cell Distribution Width 12.6 % (11.5-14.5); Segmented Neutrophils % 78.6 %; White Blood Count 7.5 K/mcL (4.3-11.1)
[2020-01-30 13:47] LABS: Hematocrit 30.1 % (35.3-44.9); Hemoglobin 9.4 g/dL (11.5-15.4)
[2020-01-30] MEDS: *HR* Rivaroxaban 10 MG TABLET PO SCH (17:18)
[2020-01-31 02:05] LABS: Basophils % 0.4 %; Eosinophils # 0.1 K/mcL (0.0-0.6); Eosinophils % 1.3 %; Hematocrit 26.4 % (35.3-44.9); Hemoglobin 8.6 g/dL (11.5-15.4); Immature Granulocytes % 0.6 % (0-4); Lymphocytes # 1.1 K/mcL (0.6-4.6); Lymphocytes % 13.3 %; Mean Corpuscular HGB Conc 32.6 g/dL (31.6-35.5); Mean Corpuscular Hemoglobin 28.8 pg (28.0-33.3); Mean Corpuscular Volume 88.3 fL (83.0-100.0); Mean Platelet Volume 10.6 fL (9.4-12.4); Monocytes # 0.9 K/mcL (0.0-1.3); Monocytes % 11.3 %; Neutrophils # 5.8 K/mcL (1.6-8.9); Platelet Count 119 K/mcL (140-400); Red Blood Count 2.99 M/mcL (3.82-4.97); Red Cell Distribution Width 12.7 % (11.5-14.5); Segmented Neutrophils % 73.1 %
[2020-01-31 02:24] LABS: BUN/Creatinine Ratio 23 (6-26); Blood Urea Nitrogen 13 mg/dL (8-23); Calcium 8.4 mg/dL (8.6-10.3); Carbon Dioxide 28 mEq/L (23-29); Chloride 103 mEq/L (98-107); Glucose 119 mg/dL (70-105); Magnesium 1.7 mg/dL (1.6-2.6); Osmolality,Calculated 287 (280-300); Phosphorous 2.7 mg/dL (2.7-4.5); Potassium 3.8 mEq/L (3.5-5.1); Sodium 138 mEq/L (136-145); eGFR For African Americans > 60 (> 60); eGFR For Non-African Americans > 60 (> 60)
[2020-01-31] MEDS: *HR* OxyCODONE Immed Rel 5 MG TABLET PO PRN (06:24)
[2020-01-31] MEDS: Ascorbic Acid 500 MG TABLET PO SCH ×2 (10:13→17:31)
[2020-01-31] MEDS: calcitrioL 0.25 MCG CAPSULE PO SCH (10:13)
[2020-01-31] MEDS: Multivit/Ca/Min/Fe/FA 1 TAB TABLET PO SCH (10:13)
[2020-01-31] MEDS: amLODIPine 5 MG TABLET PO SCH (10:13)
[2020-01-31] MEDS: Acetaminophen 325 MG TABLET PO PRN (10:13)
[2020-01-31] MEDS: Ondansetron 4 MG/2 ML VIAL IVP PRN (11:35)
[2020-01-31] MEDS: *HR* HYDROcodone/Acet 5/325 mg TABLET PO PRN ×2 (11:36→23:26)
[2020-01-31] MEDS: *HR* Rivaroxaban 10 MG TABLET PO SCH (17:32)
[2020-02-01] MEDS: *HR* HYDROcodone/Acet 5/325 mg TABLET PO PRN ×3 (06:26→20:28)
[2020-02-01 08:00] LABS: Hematocrit 26.7 % (35.3-44.9); Hemoglobin 8.5 g/dL (11.5-15.4)
[2020-02-01] MEDS ORDERED: 0.9 % Sodium Chloride 250 ML IVC SCH (08:45)
[2020-02-01] MEDS: Multivit/Ca/Min/Fe/FA 1 TAB TABLET PO SCH (09:06)
[2020-02-01] MEDS: calcitrioL 0.25 MCG CAPSULE PO SCH (09:06)
[2020-02-01] MEDS: amLODIPine 5 MG TABLET PO SCH (09:06)
[2020-02-01] MEDS: Ascorbic Acid 500 MG TABLET PO SCH ×2 (09:06→17:28)
[2020-02-01] MEDS: *HR* Rivaroxaban 10 MG TABLET PO SCH (17:28)
[2020-02-02] MEDS: calcitrioL 0.25 MCG CAPSULE PO SCH (07:51)
[2020-02-02] MEDS: Multivit/Ca/Min/Fe/FA 1 TAB TABLET PO SCH (07:51)
[2020-02-02] MEDS: Ascorbic Acid 500 MG TABLET PO SCH (07:51)
[2020-02-02] MEDS: *HR* HYDROcodone/Acet 5/325 mg TABLET PO PRN (07:51)
[2020-02-02] MEDS: amLODIPine 5 MG TABLET PO SCH (07:51)
[2020-02-02 11:19] LABS: Bilirubin,Urine Negative (Negative); Blood,Urine Negative (Negative); Clarity,Urine Clear (Clear); Color,Urine Yellow (Yellow); Glucose,Urine (UA) Normal (Normal); Ketones,Urine Negative (Negative); Leukocyte Esterase,Urine Negative (Negative); Nitrite,Urine Negative (Negative); Protein,Urine Trace mg/dL (Neg-Trace); Specific Gravity,Urine 1.013 (1.010-1.025); Urobilinogen,Urine Normal (Normal)
[2020-02-02 11:34] VITALS: BP 128/71
== END 2020-02-02 12:36 | disposition home health service (06) | DRG 522 ==
LOC: EMEROOARM 19:15 → 3NENU 19:15 → SUATTDRO 01-27 01:20
PROVIDERS: ADMIT Internal Medicine; ATTEND Internal Medicine